=== PATIENT | male | born 1965 | race Caucasian/White ===

== ENCOUNTER → 2017-05-24 | Day surgery (SDC) | payer MEDICAID ==
[~2017-05-24] MED LIST: Lidocaine 1% 20 ML MDV ONE
[2017-05-24 09:59] VITALS: BP 123/76
--- NOTE | 2017-05-24 10:24 | OR ---
DATE OF OPERATION: 05/24/2017 PREOPERATIVE DIAGNOSIS: VENOUS INSUFFICIENCY WITH PAINFUL COMPLICATED VARICOSE VEINS. POSTOPERATIVE DIAGNOSIS: VENOUS INSUFFICIENCY WITH PAINFUL COMPLICATED VARICOSE VEINS. SURGEON: Hector Schaffer MD PROCEDURE: ENDOVENOUS ABLATION, RIGHT GREATER SAPHENOUS VEIN. ANESTHESIA: Local with tumescent. COMPLICATIONS: None. SPECIMEN: None. FINDINGS: Successful BRENDA right GS. INDICATIONS: The patient has documented venous insufficiency. He is having progressive and symptomatic painful varicosities in the phase of conservative treatment. We recommend endovenous ablation. DESCRIPTION OF PROCEDURE: The patient was brought to the operating room site and the insufficient saphenous vein in the right leg mapped and diagrammed on the overlying skin. The entire limb was prepped and draped in usual fashion. The patient was placed in reverse Trendelenburg position. Local anesthesia was instilled over the access site. The vein was accessed using ultrasound guidance in a Seldinger technique with a guidewire introduced through the needle. A small incision was made with an 11 blade scalpel. The needle was then exchanged over the guidewire for a 6-Azeri sheath which was held in place by skin tension. Guidewire was removed. The sheath was flushed and radiofrequency probe was placed into the vein through the sheath and positioned approximately 2.2 cm distal to the saphenofemoral junction under ultrasound guidance. Radiofrequency probe position again verified via ultrasound and tumescent anesthesia was infiltrated into the perivenous compartment along the length of the vein from the entry site to the saphenofemoral junction achieving a nice halo affect. The patient was placed back in Trendelenburg position to exsanguinate the superficial venous system. Radiofrequency probe position was again confirmed via ultrasound and under direct external compression along the length of the heating element, radiofrequency energy was applied. The vein was segmentally ablated heating a 7 cm segment, indexing the catheter forward 6.5 cm until treatment length complete. Device temperature was maintained at 120 degrees Celsius with an initial power level of 40 garcia, dropping below 20 for each treatment. The total radiofrequency treatment time was 3 minutes and 40 seconds with 11 radiofrequency cycles. A total of 300 mL of tumescent anesthesia was used. Repeat ultrasound of the vein confirmed successful treatment. The catheter and the sheath were withdrawn and hemostasis was established with direct pressure. Skin incision was closed with bandage and compression wrap from the level of the foot to the groin. The patient was stable in the recovery room. MJP/JOSE ANTONIO /[id number]
== END ==
LOC: CC.SDS 06:43
PROVIDERS: ATTEND Family Medicine
DX: I87.2 Venous insufficiency (chronic) (peripheral) (principal); I83.891 Varicose veins of right lower extremity with other complications; G43.909 Migraine, unspecified, not intractable, without status migrainosus; F90.9 Attention-deficit hyperactivity disorder, unspecified type; M19.90 Unspecified osteoarthritis, unspecified site; N40.1 Benign prostatic hyperplasia with lower urinary tract symptoms; R35.1 Nocturia; G89.29 Other chronic pain; G44.229 Chronic tension-type headache, not intractable; B19.20 Unspecified viral hepatitis C without hepatic coma; E78.5 Hyperlipidemia, unspecified; E55.9 Vitamin D deficiency, unspecified; F17.210 Nicotine dependence, cigarettes, uncomplicated; E04.1 Nontoxic single thyroid nodule; Z88.2 Allergy status to sulfonamides; Z79.899 Other long term (current) drug therapy; Z98.890 Other specified postprocedural states
CPT/HCPCS: A4216

== ENCOUNTER → 2017-06-22 | Day surgery (SDC) | payer MEDICAID ==
[~2017-06-22] MED LIST changes: +Lidocaine 1% 30 ML SDV INJECT ONE
[2017-06-22 09:11] VITALS: BP 132/80
--- NOTE | 2017-06-23 07:07 | OR ---
DATE OF OPERATION: 06/22/2017 PREOPERATIVE DIAGNOSIS: VENOUS INSUFFICIENCY WITH PAINFUL VARICOSE VEINS. POSTOPERATIVE DIAGNOSIS: VENOUS INSUFFICIENCY WITH PAINFUL VARICOSE VEINS. SURGEON: Hector Schaffer MD PROCEDURE: BRENDA, LEFT GSV. ANESTHESIA: Local with tumescent. COMPLICATIONS: None. SPECIMEN: None. FINDINGS: Successful BRENDA, left GSV. INDICATIONS: The patient is a 51-year-old male with a painful varicosities related to his venous insufficiency. He elects to proceed with endovenous ablation. DESCRIPTION OF PROCEDURE: The patient was brought to the operating room site and the insufficient saphenous vein on the left leg mapped via ultrasound and diagrammed on the overlying skin. The access site was documented as well. The entire limb was prepped and draped in sterile fashion. The patient was placed in reverse Trendelenburg position and local anesthesia was instilled over the access site. The vein was accessed using ultrasound guidance and Seldinger technique with a guidewire introduced through the needle. The needle was removed. A small incision made with an 11 blade scalpel and the guidewire had a 6-Tongan sheath exchanged over and held in place by skin tension. Guidewire was removed and the sheath was flushed. The radiofrequency probe was placed into the vein through the sheath and positioned approximately 2 cm distal to the saphenofemoral junction and verified via ultrasound. Once probe position was confirmed, tumescent anesthesia was infiltrated under ultrasound guidance, precisely into the perivenous compartment along the length of the vein achieving a halo affect from this junction to the access site. The patient was placed back in Trendelenburg position to exsanguinate the superficial system and radiofrequency probe position was confirmed via ultrasound. With direct external compression along the length of the heating element, radiofrequency energy was applied. The vein was segmentally ablated, heating a 7 cm segment and indexing the catheter forward 6.5 cm until treatment length complete. Device temperature was maintained at 120 degrees Celsius with an initial power level of 40 garcia, dropping to below 20 for each treatment. Total treatment time was 3 minutes and 20 seconds with 7 radiofrequency cycles. A total of 150 mL of tumescent was used. Catheter and sheaths were withdrawn. Ultrasound confirmed successful treatment. Hemostasis was achieved with direct pressure. A compression wrap was applied from the level of the foot to the groin and the patient was stable in the recovery room. KAITY/MODL /[id number]
== END ==
LOC: CC.SDS 07:29
PROVIDERS: ATTEND Family Medicine
DX: I83.812 Varicose veins of left lower extremity with pain (principal); I87.2 Venous insufficiency (chronic) (peripheral); N40.1 Benign prostatic hyperplasia with lower urinary tract symptoms; R35.1 Nocturia; G44.229 Chronic tension-type headache, not intractable; E78.5 Hyperlipidemia, unspecified; E55.9 Vitamin D deficiency, unspecified; E04.1 Nontoxic single thyroid nodule; Z88.2 Allergy status to sulfonamides; Z79.899 Other long term (current) drug therapy; Z98.890 Other specified postprocedural states; F17.210 Nicotine dependence, cigarettes, uncomplicated
CPT/HCPCS: A4216

== ENCOUNTER 2017-11-06 10:50 | Emergency (ER) | payer MEDICAID ==
[2017-11-06 10:55] VITALS: BP 130/92
[2017-11-06] MEDS ORDERED: Promethazine 25 MG/ML SDV IM ONE (11:04)
[2017-11-06] MEDS ORDERED: Ketorolac 60 MG/2 ML SDV IM ONE (11:04)
--- NOTE | 2017-11-06 11:07 | EDM.PDOC ---
ED HPI GENERAL MEDICAL PROBLEM - General Chief Complaint: Headache Stated Complaint: MIGRAINE Time Seen by Provider: 11/06/17 11:00 Source of Information: Reports: Patient History Limitations: Reports: No Limitations - History of Present Illness INITIAL COMMENTS - FREE TEXT/NARRATIVE: Patient presents with migraine headache since 4 pm yesterday. States unable to get it under control. Did stop his oxycodone as he states that the narcotics usually make his headaches worse. Admits to light and sound sensitivity. No nausea. Denies any neurological concerns. Onset: Today Duration: Day(s): Location: Reports: Head Quality: Reports: Sharp, Stabbing Severity: Mild Improves with: Reports: None Associated Symptoms: Denies: Confusion, Chest Pain, Cough, Fever/Chills, Loss of Appetite, Nausea/Vomiting, Shortness of Breath Treatments MAINFRAME ANALYST: Reports: Acetaminophen, Other Medication(s) (fiorinal) Head Pain Score (Numeric/FACES): 7 - Related Data Allergies Allergy/AdvReac Type Severity Reaction Status Date / Time Sulfa (Sulfonamide Allergy Anaphylactic Verified 06/22/17 08:53 Antibiotics) Shock Home Meds: Home Meds Amphetamine/Dextroamphetamine [Adderall] 20 mg PO DAILY 10/26/14 [History] Carisoprodol [Soma] 350 mg PO BID PRN 10/26/14 [History] oxyCODONE [Oxycodone HCl] 20 mg PO QID PRN 10/26/14 [History] Cholecalciferol (Vitamin D3) [Vitamin D] 5,000 unit PO DAILY 02/04/15 [History] fentaNYL [Duragesic] 75 mcg TRDERM Q72H 02/04/15 [History] Butalbital/Aspirin/Caffeine [Fiorinal 50-325-40 MG] 1 - 2 cap PO TID PRN [History] Past Medical History Other HEENT History: eye infection Other Gastrointestinal History: 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 Social & Family History - Tobacco Use Smoking Status *Q: Current Every Day Smoker Years of Tobacco use: 25 Packs/Tins Daily: 0.3 - Alcohol Use Days Per Week of Alcohol Use: 0 - Recreational Drug Use Recreational Drug Use: No ED ROS GENERAL - Review of Systems Review Of Systems: See Below Constitutional: Denies: Fever, Chills, Malaise, Weakness, Decreased Appetite HEENT: Reports: No Symptoms Respiratory: Denies: Shortness of Breath, Cough Cardiovascular: Denies: Chest Pain, Edema, Lightheadedness Endocrine: Denies: Fatigue GI/Abdominal: Denies: Abdominal Pain, Nausea, Vomiting Neurological: Reports: Headache - Physical Exam Exam: See Below Exam Limited By: No Limitations General Appearance: Alert, WD/WN, No Apparent Distress Eye Exam: Bilateral Eye: EOMI, PERRL Ears: Normal External Exam, Normal TMs Nose: Normal Inspection, Normal Mucosa, No Blood Throat/Mouth: Normal Inspection, Normal Oropharynx Head Exam: Normocephalic Neck: Normal Inspection, Supple, Non-Tender Respiratory/Chest: No Respiratory Distress, Lungs Clear, Normal Breath Sounds Cardiovascular: Regular Rate, Rhythm Neuro Exam (Abbreviated): Alert, Oriented, CN II-XII Intact, No Motor/Sensory Deficits Extremities: Normal Inspection, No Pedal Edema Psychiatric: Normal Affect, Normal Mood Skin Exam: Warm, Dry Course - Vital Signs Last Recorded V/S: Last Vital Signs Temp 96.9 F 11/06/17 10:51 Pulse 114 H 11/06/17 10:51 Resp 18 11/06/17 10:51 BP 130/92 H 11/06/17 10:51 Pulse Ox - Orders/Labs/Meds Meds: Medications Discontinued Medications Generic Name Dose Route Start Last Admin Trade Name Liborio PRN Reason Stop Dose Admin Ketorolac Tromethamine 60 mg 11/06/17 11:04 11/06/17 11:10 Toradol IM 11/06/17 11:05 60 mg ONETIME ONE Administration Promethazine HCl 25 mg 11/06/17 11:04 11/06/17 11:10 Phenergan IM 11/06/17 11:05 25 mg NOW ONE Administration Departure - Departure Time of Disposition: 11:06 Disposition: Home, Self-Care 01 Condition: Good Clinical Impression: Migraine - Discharge Information Instructions: Recurrent Migraine Headache Forms: ED Department Discharge Additional Instructions: 1. Rest 2. Push fluids 3. Usual meds 4. Follow up with Dr. Hull as needed
== END 2017-11-06 11:23 | disposition home or self-care (01) ==
LOC: CC.ED 10:50
DX: G43.909 Migraine, unspecified, not intractable, without status migrainosus (principal); F17.210 Nicotine dependence, cigarettes, uncomplicated; Z79.899 Other long term (current) drug therapy; Z88.2 Allergy status to sulfonamides
CPT/HCPCS: 96372; 99282; J1885; J2550

== ENCOUNTER 2018-12-03 10:44 | Emergency (ER) | payer MEDICAID ==
[2018-12-03] MEDS ORDERED: Clindamycin HCl 150 MG Cap PO ONE (10:45)
[2018-12-03] MEDS ORDERED: Lidocaine 1% 20 ML MDV ONE (10:59)
[2018-12-03 11:00] VITALS: BP 123/86
[2018-12-03] MEDS ORDERED: cefTRIAXone 1 GM Vial IM ONE (11:01)
[2018-12-03] MEDS ORDERED: Take Home: Clindamycin HCl 150 MG Cap, 6 Cap Pack PO ONE (11:01)
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
[2018-12-03] MEDS ORDERED: Lidocaine 1% 20 ML MDV INJECT ONE (11:34)
== END 2018-12-03 11:42 | disposition home or self-care (01) ==
LOC: CC.ED 10:44
DX: L03.114 Cellulitis of left upper limb (principal); F17.210 Nicotine dependence, cigarettes, uncomplicated; Z79.899 Other long term (current) drug therapy; Z88.2 Allergy status to sulfonamides
CPT/HCPCS: 96372; 99282; A9270-GY; J0696; J2001

== ENCOUNTER 2018-12-30 22:34 | Emergency (ER) | payer MEDICAID ==
[2018-12-30] MEDS ORDERED: Clindamycin HCl 150 MG Cap PO ONE (22:35)
[2018-12-30 22:49] VITALS: BP 121/83
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
[2018-12-30] MEDS ORDERED: cefTRIAXone 1 GM Vial IM ONE (23:11)
[2018-12-30] MEDS ORDERED: Take Home: Clindamycin HCl 150 MG Cap, 6 Cap Pack PO ONE (23:11)
[2018-12-30] MEDS ORDERED: Lidocaine 1% 20 ML MDV ONE (23:13)
== END 2018-12-30 23:35 | disposition home or self-care (01) ==
LOC: CC.ED 22:34
DX: L03.114 Cellulitis of left upper limb (principal); F17.210 Nicotine dependence, cigarettes, uncomplicated; Z79.899 Other long term (current) drug therapy; Z88.2 Allergy status to sulfonamides
CPT/HCPCS: 96372; 99282; A9270-GY; J0696; J2001

== ENCOUNTER 2019-02-09 01:19 | Emergency (ER) | payer MEDICAID ==
[2019-02-09 01:23] VITALS: BP 145/83
[2019-02-09] MEDS ORDERED: Ketorolac 60 MG/2 ML SDV IM ONE (01:45)
[2019-02-09] MEDS ORDERED: Promethazine 25 MG/ML SDV IM ONE (01:50)
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
== END 2019-02-09 02:00 | disposition home or self-care (01) ==
LOC: CC.ED 01:19
DX: G44.209 Tension-type headache, unspecified, not intractable (principal); F43.10 Post-traumatic stress disorder, unspecified; Z79.899 Other long term (current) drug therapy; Z88.2 Allergy status to sulfonamides
CPT/HCPCS: 96372; 99283; J1885; J2550

== ENCOUNTER 2019-02-21 17:05 | Emergency (ER) | payer MEDICAID ==
[2019-02-21 17:49] VITALS: BP 158/91; PULSE 98
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
[2019-02-21 18:06] LABS: CHLORIDE,CL 103 mEq/L (98-106); SODIUM,NA 140 mEq/L (136-145)
== END 2019-02-21 18:30 ==
LOC: CC.ED 17:05
DX: J06.9 Acute upper respiratory infection, unspecified (principal); Z88.2 Allergy status to sulfonamides; Z79.899 Other long term (current) drug therapy
CPT/HCPCS: 36415; 71046; 80053; 80305-QW; 81001; 84484; 85027; 99283-25